=== PATIENT | female | born 1980 | race Caucasian/White ===

== ENCOUNTER → 2021-11-10 08:50 | Outpatient (BNVA) | payer OTHER, SELFPAY | PROVIDERS: Visit Provider Nurse Practitioner Family ==

== ENCOUNTER → 2022-01-12 09:00 | Outpatient (BNVA) | payer OTHER, SELFPAY | PROVIDERS: Visit Provider Nurse Practitioner Family ==

== ENCOUNTER 2023-11-22 19:10 | Emergency (ER) | payer MEDICAID, SELFPAY ==
--- NOTE | ~2023-11-22 | XR_ITS ---
EXAMINATION: XR HIP, LEFT CLINICAL INFORMATION: Right groin and hip pain status post fall COMPARISON: None available. TECHNIQUE: Single view the pelvis 2 views of the left hip FINDINGS: No acute visible fracture or dislocation. Bilateral hips demonstrate coxa vara angulation. Degenerative arthropathy of the lumbosacral spine. Joint spaces and alignment are maintained. Soft tissues are unremarkable. Visualized bowel gas is unremarkable. XR/XR hip LT w [id number] IMPRESSION: 1. No acute visible fracture or dislocation. 2. Bilateral hips demonstrate coxa vara angulation. 3. Degenerative arthropathy of the lumbosacral spine.
--- NOTE | 2023-11-22 19:15 | ED.GENADULT ---
HPI - General Adult General Chief complaint: Fall Stated complaint: hip inj, fell while running Time Seen by Provider: 11/22/23 21:01 Source: patient and family Mode of arrival: ambulatory Limitations: no limitations History of Present Illness HPI narrative: Patient is Syrian speaking only. Criminal Justice Social Worker was offered. However, patient requested to have her daughter interpret for us Patient comes to the emergency room complaining of left-sided hip pain and inguinal pain. Patient states that earlier today she was playing with children, patient was running trying to catch them, patient slipped her legs split open laterally. Patient states that since then she has had hip pain. Patient states that she did not hurt her head or lost consciousness, does not take any blood thinners. Related Data Home Medications Medication Instructions Recorded Confirmed azathioprine 50 mg tablet 50 mg PO DAILY 11/03/21 calcium carbonate 334 mg-magnesium 1 tab PO DAILY 11/03/21 01/31/22 oxide 134 mg-zinc sulf 5 mg tablet Previous Rx's Medication Instructions Recorded methylprednisolone 4 mg tablet 4 mg PO DAILY 30 days #30 tabs 11/10/21 cyclobenzaprine 10 mg tablet 10 mg PO TID PRN muscle spasm #7 11/22/23 tabs ketorolac 10 mg tablet 10 mg PO TID PRN pain #10 tabs 11/22/23 Allergies Allergy/AdvReac Type Severity Reaction Status Date / Time No Known Allergies Allergy Verified 11/22/23 19:15 Review of Systems Review of Systems: Constitutional : No Weight loss, No Fever, No Chills, No Night Sweats, No Fatigue, No Malaise ENT/Mouth : No Hearing loss, No Ear Pain, No Nasal Congestion, No Sinus Pain, No Hoarseness, No sore throat, No Rhinorrhea, No Swallowing Difficulty Eyes: No Eye Pain, No Swelling, No Redness, No Foreign Body, No Discharge, No Vision Changes Cardiovascular : No Chest Pain, No SOB, No Dyspnea on Exertion, No Orthopnea, No Edema, No Palpitations Respiratory : No Cough, No Sputum, No Wheezing, No Smoke Exposure, No Dyspnea Gastrointestinal : No Nausea, No Vomiting, No Diarrhea, No Constipation, No abdominal Pain, No Hematochezia, No Melena Genitourinary : no irregular bleeding, No Dysuria, No Urinary Frequency, No Hematuria, No Urinary Incontinence, No Urgency, No Flank Pain, No Urinary Flow Changes, No Hesitancy Musculoskeletal : Complaining of left-sided hip pain and left inguinal pain, No joint pain, No Myalgias, No Joint Swelling Skin : No Skin Lesions, No rash Neuro : No Weakness, No Numbness, No Paresthesias, No Loss of Consciousness, No Dizziness, No Headache Psych : No Anxiety/Panic, No Depression, No SI/HI/AH/VH, No Social Issues, Heme/Lymph: No Bruising, No Bleeding,No Lymphadenopathy Endocrine : No Polyuria, No Polydipsia, No Temperature Intolerance PMFSH Past Medical History Onset Date is defined in the Problem List Problems that require an onset date and time if occurred within 24 hrs of arrival to the ED Aortic Dissection and Rupture; Neurologic impairment; Cardiopulmonary Arrest; Endotracheal Intubation; Insertion or Replacement of Mechanical Circulatory Assist Device Surgical History (Updated 11/03/21 @ 15:00 by ALEKSANDRA Calderon) H/O tubal ligation H/O section Family History Family History Father HTN (hypertension) Mother HTN (hypertension) Social History Social History Alcohol intake: never Patient Tobacco Use Status: Never used Tobacco Physical Exam ED Vital Signs: Vital Signs - 24 hr 11/22/23 19:21 11/22/23 21:03 Temperature 98.1 F Pulse Rate 75 67 Respiratory Rate 16 Blood Pressure 142/86 H 132/76 Pulse Oximetry 98 99 Oxygen Delivery Method Room Air Room Air BMI result Body Mass Index 26.9 Const Other: Appearance: Alert. Oriented X3. No acute distress. Eyes: Pupils equal, round and reactive to light. ENT: Pharynx normal. Neck: Normal inspection. Neck supple. No lymph nodes noted. No crepitus CVS: Normal heart rate and rhythm. Pulses normal. Normal S1 and S2 Respiratory: No respiratory distress. Breath sounds normal. No Wheezing. No rales Abdomen: Soft and nontender. No rigidity. No distention. Skin: Skin warm and dry. Normal skin color. Normal skin turgor. Extremities: No lower extremity edema. No Lacerations. No Rash. Patient is able to flex extend and rotate the hips with normal range of motion, but hurts doing so on the left. Neuro: Oriented X 3. No motor deficit. No sensory deficit. Moving all extremities. No slurred speech. CN 2 through 12 grossly intact Psych: calm, cooperative, normal affect Course Course Course Narrative: RME:?42 yo female here w/ left groin/ hip pain after s/p fall from standing height. states she was running after her children when she slipped, causing her to do the splits. no head strike or LOC. not on AC. reports immediate pain to the right groin/ hip area. pain w/ bearing weight. able to ambulate with assistance. no back pain. no bowel/bladder incontinence or retention. with daughter who will interpret. exam limited in triage. pt in wheelchair. 2+ dp/pt pulses. sensation intact. decreased strength of LLE secondary to pain. imaging ordered Full HPI, ROS and PE to be performed by the primary ED provider. Medical Decision Making Medical Decision Making [facility] Narrative: -my interpretation of x-ray of the left hip: No fracture, normal alignment -patient was given choice of treatment including p.o. versus IM. Patient decided to do IM Toradol and oral muscle relaxants. -discussed with the patient that if she has any trouble walking, we can offer crutches. However, with the icy roads, this may be a hazard. Patient opted to not use crutches, states that she can walk slowly. Differential Diagnosis Differential Diagnoses: The differential diagnosis associated with the presentation includes (Inguinal ligament injury, hip fracture, dislocation, contusion) Independent Interpretation I performed an independent interpretation of an: Plain X-Ray Radiology Impression Discussion of test interpretation with radiology: I have reviewed the radiologist's reading. Radiologist Impression: FINDINGS: No acute visible fracture or dislocation. Bilateral hips demonstrate coxa vara angulation. Degenerative arthropathy of the lumbosacral spine. Joint spaces and alignment are maintained. Soft tissues are unremarkable. Visualized bowel gas is unremarkable. XR/XR hip LT w PEL1V IMPRESSION: 1. No acute visible fracture or dislocation. 2. Bilateral hips demonstrate coxa vara angulation. 3. Degenerative arthropathy of the lumbosacral spine. Discharge Plan Discharge Clinical Impression: Acute hip pain Patient Disposition: Home, Self-Care Instructions: Arthralgia (ED), Hip Pain (ED) Additional Instructions: Please follow-up with your primary care physician tomorrow. If you have any worsening or new symptoms, please return to the emergency room or call 911 Prescriptions: New ketorolac 10 mg tablet 10 mg PO TID PRN (Reason: pain) Qty: 10 0RF Rx Instructions: Do not use this medication with Aleve, ibuprofen, naproxen or any other NSAIDs. Tylenol is okay cyclobenzaprine 10 mg tablet 10 mg PO TID PRN (Reason: muscle spasm) Qty: 7 0RF No Action azathioprine 50 mg tablet 50 mg PO DAILY calcium carb-mag ox-zinc sulf 334-134-5 mg tablet 1 tab PO DAILY Rx Instructions: administer with a meal methylprednisolone 4 mg tablet 4 mg PO DAILY 30 Days Qty: 30 2RF
[2023-11-22 19:21] VITALS: BP 142/86; PULSE 75; RESP 16; TEMP 36.7; O2SAT 98; BMI 26.9
[2023-11-22 21:03] VITALS: BP 132/76; PULSE 67; O2SAT 99
[2023-11-22] MEDS: Cyclobenzaprine HCl 10 MG TABLET PO (21:27)
[2023-11-22] MEDS: Ketorolac Tromethamine 60 MG/2 ML VIAL IM (21:27)
--- OUTSIDE RECORDS SUMMARY | 2023-11-22 21:28 | XMS_ITS | Continuity of Care Document ---
Author Name Unknown Organization [facility] Address [address] [place] [id number]- Care Team Providers Care Chief Inspector Name Role Phone Yesica Lucio Primary Care Physician [phone] Encounter [facility] [place] [facility] [place] Date(s): 01/17/23 - 01/17/[address] [address]- Discharge Disposition: A-D/C Home Attending Physician: Tobias Matthews MD Admitting Physician: Tobias Matthews MD Referring Physician: Tobias Matthews MD Allergies, Adverse Reactions, Alerts No Known Allergies Medications Colace sodium 100 mg oral capsule 100 mg, 1, capsule, By Mouth, 2 times a day, PRN, # 60 capsule, Refills 0, Tot. Refills 0, Maintenance, for constipation, 01/17/23 12:52:00 EDT, Route to Pharmacy Electronically, [id number], Partial fill upon patient request if the pr... Start Date: 01/17/23 Status: Ordered Compression Stockings See Instructions, # 2 each, Refills 1, Tot. Refills 1, Maintenance, surgical, thigh high length 20-30 mm Hg Dx: Venous Insuff., 12/23/22 9:55:00 EST, Supply Start Date: 12/23/22 Status: Ordered diazepam 5 mg oral tablet 5 mg, 1, tablet, By Mouth, 3 times a day, # 40 tablet, Refills 0, Tot. Refills 0, Maintenance, 01/17/23 12:52:00 EDT, Route to Pharmacy Electronically, [id number], Partial fill upon patient request if the prescription is for a schedul... Start Date: 01/17/23 Status: Ordered Ferrous Sulfate EC Refills 0, Maintenance, 01/13/23 16:47:00 EST, Partial fill upon patient request if the prescription is for a schedule II opioid drug. Start Date: 01/13/23 Status: Ordered oxyCODONE 5 mg oral tablet 5 mg, 1, tablet, By Mouth, Every 6 hours, # 28 tablet, Refills 0, Tot. Refills 0, Maintenance, 01/17/23 12:52:00 EDT, Route to Pharmacy Electronically, [facility] #[id number], Partial fill upon patient request if the prescription is for a schedul... Start Date: 01/17/23 Status: Ordered Oxycodone 5mg Oral Tablet (PACU ONLY) 5 mg, Tablet, By Mouth, Once, in PACU ONLY, PRN for Pain , Moderate, Routine, 01/17/23 11:51:00 EDT Start Date: 01/17/23 Stop Date: 01/17/23 Status: Completed Vital Signs Most recent to oldest [Reference Range]: 1 2 3 Height 161 cm (01/17/23 10:20 AM) 161 cm (01/13/23 4:51 PM) Weight 67.7 kg (01/17/23 10:20 AM) 68.9 kg (01/13/23 4:51 PM) Oxygen Saturation [94-100 %] 96 % (01/17/23 1:15 PM) 95 % (01/17/23 1:00 PM) 97 % (01/17/23 12:45 PM) Pulse Rate [55-90 bpm] 67 bpm (01/17/23 10:20 AM) Body Mass Index [18.5-24.99 kg/m2] 26.12 kg/m2 *H* (01/17/23 10:20 AM) 26.58 kg/m2 *H* (01/13/23 4:51 PM) Blood Pressure [90-138/55-84 mm Hg] 131/88mm Hg (01/17/23 1:15 PM) 136/89mm Hg (01/17/23 1:00 PM) 157/97mm Hg *H* (01/17/23 12:45 PM) Respiratory Rate [16-30 br/min] 16 br/min (01/17/23 1:22 PM) 15 br/min *L* (01/17/23 1:15 PM) 15 br/min *L* (01/17/23 1:00 PM) Temperature [96.8-100.4 DegF] 97 DegF (01/17/23 1:15 PM) 97.0 DegF (01/17/23 12:15 PM) 98.2 DegF (01/17/23 10:20 AM) Liters per Minute 6 L/min (01/17/23 12:15 PM) Mode of Delivery (Oxygen) Room air (01/17/23 1:15 PM) Room air (01/17/23 1:00 PM) Room air (01/17/23 12:45 PM) Temperature Route Temporal (01/17/23 1:15 PM) Temporal (01/17/23 12:15 PM) Femoral (01/17/23 10:20 AM) Dry Weight 68.9 kg (01/13/23 4:51 PM) Weight Obtained Via Standing scale (01/17/23 10:20 AM) Dry Weight Obtained Via Patient/family s tated (01/13/23 4:51 PM) Social History Social History Type Response Smoking Status Never (less than 100 in lifetime) entered on: 10/09/20 Sex Female Note * Layla Dubose RN: PERFORM Event Display: Discharge/Transfer Note Hospital Authored Date: [id number] Nursing Discharge Note Entered On: 01/17/2023 13:42 EDT Performed On: 01/17/2023 13:42 EDT by Layla Dubose RN Nursing Discharge Note 2 Discharge Time : 01/17/2023 13:42 EDT Discharge Level of Care at Discharge : Home/Prison/Foster Care Patient Left Unit Via : Wheelchair Patient Accompanied Off Unit with : Responsible adult DC Instructions Provided & Signed by Pt : Yes Patient Understands D/C Instructions : Yes Patient Instructions Discharge Signed : Yes Did Pt have Specialty Bed or Wound Vac : No Layla Dubose RN - 01/17/2023 13:42 EDT * Tamia Harvey RN: PERFORM Event Display: Patient Education/Instruction Authored Date: [id number] Inpatient Adult Discharge Instructions [address] [address] Name: KATERINA REYNOLDS : 1980 Visit: 01/17/2023 09:08:00 Current Date: 01/17/2023 13:02 Account: [id number] Inpatient Adult Discharge Instructions We would like to thank you for allowing us to assist you with your healthcare needs. The following includes patient education materials and information regarding your injury/illness. Our entire staffstrives to provide an excellent experience for our patients and their families. PLEASE ENSURE YOU FOLLOW-UP PER THE INSTRUCTIONS BELOW! ?? YOUR OPINION IS IMPORTANT TO US! Please complete the survey you may receive by mail or email. Your feedback will be used to make improvements to the healthcare experiences of our patients and their families. Surveys are administered by [employer] ?? If further treatment with your primary care physician or another doctor is recommended, it is important for you to keep the appointment. Call your primary care physician or return to the Emergency Department immediately if your condition worsens, fails to improve, or new symptoms develop. If you need to find a doctor, you can call [facility] [employer] for a referral at [phone] or toll free at [phone] or log in to [email or web address] ?? You can view and manage your care through the patient portal or by using a health care paulette of your choosing. [employer] is a website that allows you to securely view your medical information including your hospital discharge summary, office visit summaries, medications and follow-up visits. You can also request appointments, renew medications, and request access to your medical information using a health care paulette of your choosing, or just ask a question. You can enroll at [email or web address] or register during your next office visit. You have been discharged from [facility], Patient Care Unit: [facility]. If you have any questions regarding these instructions after you leave, please call us and we will be happy to assist you. [facility] Your Care Team Attending Physician Tobias Matthews MD Discharging Providers Sammy BUTLER, Angel Modi Reason for Admission HEMORRHOIDS CS DS Tests Performed Below is a partial list of the tests performed during your hospitalization. You may have had other tests and procedures not included in this list. Please discuss all test results with your provider. Primary Care Provider Yesica Lucio Advance Directive Health Care Proxy on File No Discharge Vitals Temperature: 97 DegF Height: 161 cm Pulse Rate: 67 bpm Weight: 67.7 kg Respiratory Rate:??12 br/min??Low Body Mass Index:??26.12 kg/m2??High Respiratory Rate: 16 br/min Body surface area: 1.74 Systolic Blood Pressure:??157 mm Hg??High ?? Diastolic Blood Pressure:??97 mm Hg??High ?? Oxygen Saturation: 97 % ?? Studies Pending All tests and labs ordered during this hospital stay have been completed unless listed below. Please discuss all pending results with your provider listed above in these instructions. ?? No incomplete studies found What to do next Instructions From Your Doctor Discharge Orders Instructions from your Care Team Please see discharge instructions provided in white folder. Scheduled Follow-Up Appointments Monday 10:30 AM EDT ?? With: Byron BUTLER, Tobias Hahn Where: [address] [place] [address]- You Need to Schedule the Following Appointments Follow Up with??Tobias Matthews When?? Where: [address] [place] [address] [address] [place] [address]- [facility] (1) Follow Up with??Yesica Borden When??In 0 days Discharge Medications KATERINA REYNOLDS :1980 Visit Date:01/17/2023 Medications: Please continue your medications until treatment is completed or stopped by your provider. Medications not listed below should be discontinued. Discuss any questions related to medications with your provider. What How Much When Instructions Next Dose Unchanged Diazepam (diazepam 5 mg oral tablet) 1 tab(s) Oral 3 times a day Unchanged Docusate (Colace sodium 100 mg oral capsule) 1 capsule Oral Twice a day as needed for for constipation Unchanged Durable Medical Equipment (Compression Stockings) See instructions surgical, thigh high length 20-30 mm Hg ?? Dx: Venous Insuff. ?? Unchanged Ferrous Sulfate (Ferrous Sulfate EC) Unchanged Oxycodone (oxyCODONE 5 mg oral tablet) 1 tab(s) Oral Every 6 hours Tylenol- next dose 7pm if needed. Ibuprofen- may take Test Results Below is a partial list of the most recent Laboratory test results done prior to this discharge. You may have had other tests and procedures not included in this list. Please discuss all test resultswith your provider. Allergies (NKA means No Known Allergies) NKA Problems No qualifying data available Education Materials Below is the list of Educational Leaflet Providered with your Discharge Instructions. Surgery Medical Daystay Surgical Overnight Discharge Instructions?? Valuables and Belongings I fully understand and agree that [facility] accepts no responsibility for all my personal property including clothing, toilet articles, radios, jewelry, dentures, hearing aids, rings, money, or any other property that is in my possession or is brought to me after admission. I understand certain valuables may be placed in a hospital safe for a short period of time. I understand that the hospital is not liable for loss or damage due to accident, fire, or other natural occurrence while said property is in the safe. I accept full responsibility for any personal property that I keep with me, and will not hold the hospital responsible in case of loss or disappearance. I acknowledge that i have been encouraged to send valuables and belongings home. ?? Date for Pt to Sign Valuables/Belongings: 01/17/23 10:20:00 ?? Valuables & Belongings ?? Clothes Electronic devices Jewelry Monetary Items Personal devices Miscellaneous Medications (Valuables) Valuables at Bedside Jacket, Pants, Shirt, Shoes, Undergarments ? Valuables Sent Home ? Valuables Sent to Security ? Other Discharge Information ? Pulmonary Rehab Status?? Pulmonary Rehab Discharge Status?? Respiratory Rate:??12 br/min??Low Respiratory Rate: 16 br/min ? Common Emergency Awareness Tips IS IT A STROKE? Act FAST and Check for these signs: FACE Does the face look uneven? ARM Does one arm drift down? SPEECH Does their speech sound strange? TIME Call at any sign of stroke ?? Heart Attack Signs Chest discomfort: Most heart attacks involve discomfort in the center of the chest and lasts more than a few minutes, or goes away and comes back. It can feel like uncomfortable pressure, squeezing, fullness or pain. Discomfort in upper body: Symptoms can include pain or discomfort in one or both arms, back, neck, jaw or stomach. Shortness of breath: With or without discomfort. Other signs: Breaking out in a cold sweat, nausea, or lightheaded. Remember, MINUTES DO MATTER. If you experience any of these heart attack warning signs, call to get immediate medical attention! ?? Smoking can increase your chances of developing chronic health problems and can cause harmful effects to other family members in your house. If you smoke, you are strongly encouraged to quit. Please call [facility] [employer] [facility] at [phone] or [phone] 2.0 (0633) or log in to [email or web address] for referrals to smoking cessation programs. ?? The National Suicide Prevention Hotline is available 29/05 if you or someone you know needs to find a reason to keep living. By calling 2-217-861-[employer] (6679) you'll be connected to a skilled, trained counselor at a crisis center in your area. INPATIENT DISCHARGE INSTRUCTIONS SIGNATURE PAGE KATERINA REYNOLDS Location:[facility] Registration Date and Time:01/17/2023 09:08 EDT Primary Care Physician: Yesica Lucio, I KATERINA REYNOLDS, have received the above patient education materials/instructions and have verbalized understanding. If ambulance or transport services are being used I further acknowledge being given a choice of service. ?? If you need to contact me, please call me at this number: . Patient/Rig Welder Name: Katerina Reynolds Patient/Rig Welder Signature: Relationship to Patient: self Witness Name/Signature: Date: 3.14.23 * Tamia Harvey RN: PERFORM, SIGN, VERIFY Event Display: Patient Education Handout Authored Date: [id number] * Tamia Harvey RN: PERFORM Event Display: Patient Education Leaflets Authored Date: [id number] Surgery Medical Daystay Surgical Overnight Discharge Instructions ?? 295 Medical Daystay/Surgical Overnight Discharge Instructions ? Since your coordination and judgment may be altered by medication and/or anesthesia, a responsible adult must drive you home from the hospital. ? If you have received medication for pain or sedation while under our care, you should not drive, operate machinery, drink alcohol, or sign any legal documents for 24 hours.?? You should have someone with you at home tonight. ? Remain at home the day of discharge.?? You may be up and about unless otherwise instructed by your physician. ? You may resume your daily prescription medication schedule.?? Any depressant medication should be avoided for 24 hours unless otherwise instructed by your surgeon or anesthesiologist. ? Call your physician for a follow-up appointment.? If you experience unusual or severe pain not relied by your pain medication, excessive bleedingor drainage, persistent nausea and vomiting, excessive swelling or redness, foul odor from incisionsite or fever over 100.6F, you need to call your physician. ? A follow-up phone call by a nurse will be made the day after your procedure.?? If you have stayed with us over night, you will not be receiving a follow-up phone call. ? Nausea and vomiting are a common side effect of prescription pain medication.?? We recommend that pills are not taken on an empty stomach.?? While taking any prescription pain medication you should not drive or drink alcohol. ? Patient Care team information Care Team Personnel Name: Yesica Lucio Position: S Associate Professional Member Role: PCP Address: Address: [address] Care Team Related Persons Name: NAVID FORRESTER
--- OUTSIDE RECORDS SUMMARY | 2023-11-22 21:28 | XMS_ITS | Continuity of Care Document ---
Author Name Unknown Organization [facility] Address [address] [place], [place] [address] ve [address] [place] [address]- Care Team Providers Care Maintainer Central Office Name Role Phone Yesica Lucio Primary Care Physician Encounter [facility] [place] Date(s): 01/21/23 - 02/20/[address] [place] [address]- Allergies, Adverse Reactions, Alerts No Known Allergies Medications Colace sodium 100 mg oral capsule 100 mg, 1, capsule, By Mouth, 2 times a day, PRN, # 60 capsule, Refills 0, Tot. Refills 0, Maintenance, for constipation, 01/17/23 12:52:00 EDT, Route to Pharmacy Electronically, [facility][id number], Partial fill upon patient request if the [...] 01/17/23 12:52:00 EDT, Route to Pharmacy Electronically, [facility] #[id number], Partial fill upon patient request if the [...] 01/17/23 12:52:00 EDT, Route to Pharmacy Electronically, [facility] #[id number], Partial fill upon patient request if the prescription is for a schedul... Start Date: 01/17/23 Status: Ordered Social History Social History Type Response Smoking Status Never (less than 100 in lifetime) entered on: 10/09/20 Sex Female Patient Care team information Care Team Personnel Name: Yesica Lucio Position: S Associate Professional Member Role: PCP Address: Address: [address] [place] [address]- Care Team Related Persons Name: SARA MEDRANO
--- OUTSIDE RECORDS SUMMARY | 2023-11-22 21:28 | XMS_ITS | Continuity of Care Document ---
Author Name Unknown Organization [facility] Address [address] [place] [address] [address] [place] [address]- Care Team Providers Care Soil Conservation Technician Name Role Phone Yesica Lucio Primary Care Physician [place] [facility] [place] - 08/24/[address] [place] [address]- Attending Physician: Tobias Matthews MD Referring Physician: Yesica Lucio Allergies, Adverse Reactions, Alerts No Known Allergies Medications azaTHIOprine 50 mg oral tablet 50 mg, 1, tablet, By Mouth, 3 times a day, Refills 0, Maintenance, 10/09/20 16:52:00 EST, Partial fill upon patient request if the prescription is for a schedule II opioid drug. Start Date: 10/09/20 Status: Ordered methylPREDNISolone 8 mg oral tablet = 8 mg, By Mouth, Daily, 0 Refills, Maintenance, 10/09/20 16:50:00 EST, Partial fill upon patient request if the prescription is for a schedule II opioid drug. Start Date: 10/09/20 Status: Ordered Vital Signs Most recent to oldest [Reference Range]: 1 Height 161 cm (08/17/22 11:07 AM) Weight 68.2 kg (08/17/22 11:07 AM) Pulse Rate [55-90 bpm] 83 bpm (08/17/22 11:07 AM) Body Mass Index [18.5-24.99 kg/m2] 26.31 kg/m2 *H* (08/17/22 11:07 AM) Blood Pressure [90-138/55-84 mm Hg] 142/ 80mm Hg *H* (08/17/22 11:07 AM) Temperature [96.8-100.4 DegF] 98.2 DegF (08/17/22 11:07 AM) Temperature Route Temporal (08/17/22 11:07 AM) Social History Social History Type Response Smoking Status Never (less than 100 in lifetime) entered on: 10/09/20 Sex Female Patient Care team information Personnel Name: Yesica Lucio Address: Address: [address] [place] [address]
--- OUTSIDE RECORDS SUMMARY | 2023-11-22 21:28 | XMS_ITS | Continuity of Care Document ---
Author Name Unknown Organization [facility] Address [address] [place] [address] [address] [place] [address]- Care Team Providers Care Manager Of Creative Services Name Role Phone Yesica Lucio Primary Care Physician Encounter [place] Date(s): 07/14/23 - 08/13/[address] [place] [address]- Allergies, Adverse Reactions, Alerts No Known Allergies Immunizations Given and Recorded Vaccine Date Status Refusal Reason tetanus/diphtheria/pertussis, acel(Tdap) 05/05/23 Given Medications Colace sodium 100 mg oral capsule 100 mg, 1, capsule, By Mouth, 2 times a day, PRN, # 60 capsule, Refills 0, Tot. Refills 0, Maintenance, for constipation, 01/17/23 12:52:00 EDT, Route to Pharmacy Electronically, [facility][id number], Partial fill upon patient request if the [...] 01/17/23 12:52:00 EDT, Route to Pharmacy Electronically, [facility] #[id number], Partial fill upon patient request if the [...] 01/17/23 12:52:00 EDT, Route to Pharmacy Electronically, [facility][id number], Partial fill upon patient request if the prescription is for a schedul... Start Date: 01/17/23 Status: Ordered Social History Social History Type Response Smoking Status Never (less than 100 in lifetime) entered on: 10/09/20 Sex Female Patient Care team information Care Team Personnel Name: Yesica Lucio Position: S Associate Professional Member Role: PCP Address: Address: [address] [place] [address] Care Team Related Persons Name: ARYA QUINONEZ Name: HANNAH REYNOLDS Name: SARA MEDRANO Address: [facility]
--- OUTSIDE RECORDS SUMMARY | 2023-11-22 21:28 | XMS_ITS | Continuity of Care Document ---
Author Name Unknown Organization [facility] Address [address] [place] [address]i ve [address] [place] [address]- Care Team Providers Care Shot Core Drill Operator Name Role Phone Yesica Lucio Primary Care Physician [phone] Encounter [facility] [place] Date(s): 01/31/23 - 03/02/[address] [place] [address]- Allergies, Adverse Reactions, Alerts No Known Allergies Medications Colace sodium 100 mg oral capsule 100 mg, 1, capsule, By Mouth, 2 times a day, PRN, # 60 capsule, Refills 0, Tot. Refills 0, Maintenance, for constipation, 01/17/23 12:52:00 EDT, Route to Pharmacy Electronically, [facility][id number], Partial fill upon patient request if the [...] 01/17/23 12:52:00 EDT, Route to Pharmacy Electronically, [facility] #[id number], Partial fill upon patient request if the [...] 01/17/23 12:52:00 EDT, Route to Pharmacy Electronically, [facility] #[id number], Partial fill upon patient request if the prescription is for a schedul... Start Date: 01/17/23 Status: Ordered Social History Social History Type Response Smoking Status Never (less than 100 in lifetime) entered on: 10/09/20 Sex Female Patient Care team information Care Team Personnel Name: Yesica Lucio Position: S Associate Professional Member Role: PCP Address: Address: [address] [place] [address]- Care Team Related Persons Name: SARA MEDRANO
--- OUTSIDE RECORDS SUMMARY | 2023-11-22 21:28 | XMS_ITS | Continuity of Care Document ---
Author Name Unknown Organization [facility] Address [address] [place] [address]- Care Team Providers Care Telephone Exchange Operator Name Role Phone Yesica Lucio Primary Care Physician [phone] [place] [facility] [place] 12/19/22 - 01/18/23 [facility] [address] [place], [place] [address] Attending Physician: Jocelynn Mckeon Admitting Physician: Jocelynn Mckeon Referring Physician: trJocelynn Allergies, Adverse Reactions, Alerts No Known Allergies Medications Colace sodium 100 mg oral capsule 100 mg, 1, capsule, By Mouth, 2 times a day, PRN, # 60 capsule, Refills 0, Tot. Refills 0, Maintenance, for constipation, 01/17/23 12:52:00 EDT, Route to Pharmacy Electronically, [facility][id number], Partial fill upon patient request if the [...] 01/17/23 12:52:00 EDT, Route to Pharmacy Electronically, [facility] #[id number], Partial fill upon patient request if the [...] 01/17/23 12:52:00 EDT, Route to Pharmacy Electronically, [facility] #[id number], Partial fill upon patient request if the prescription is for a schedul... Start Date: 01/17/23 Status: Ordered Social History Social History Type Response Smoking Status Never (less than 100 in lifetime) entered on: 10/09/20 Sex Female Patient Care team information Care Team Personnel Name: Yesica Lucio Position: S Associate Professional Member Role: PCP Address: Address: [address] [place] [address] Care Team Related Persons Name: NAVID FORRESTER
--- OUTSIDE RECORDS SUMMARY | 2023-11-22 21:28 | XMS_ITS | Continuity of Care Document ---
Author Name Unknown Organization [facility] Address [address] [place] [address]- Care Team Providers Care Slubber Machine Operator Name Role Phone Yesica Lucio Primary Care Physician [place] [facility] [place] - 08/28/[address] [address] Discharge Disposition: A-D/C Home Attending Physician: Tobias Matthews MD Admitting Physician: Tobias Matthews MD Referring Physician: Tobias Matthwes MD Allergies, Adverse Reactions, Alerts No Known Allergies Immunizations Given and Recorded Vaccine Date Status Refusal Reason tetanus/diphtheria/pertussis, acel(Tdap) 05/05/23 Given Medications famotidine 20 mg oral tablet 20 mg, 1, tablet, By Mouth, Daily, # 30 tablet, Refills 0, Maintenance, 08/28/23 9:25:00 EDT, Partial fill upon patient request if the prescription is for a schedule II opioid drug. Start Date: 08/28/23 Status: Ordered PredniSONE By Mouth, Daily, 0 Refills, Maintenance, 08/28/23 9:25:00 EDT, Partial fill upon patient request ifthe prescription is for a schedule II opioid drug. Start Date: 08/28/23 Status: Ordered Vital Signs Most recent to oldest [Reference Range]: 1 2 3 Height 160 cm (08/28/23 9:29 AM) Weight 68 kg (08/28/23 9:29 AM) Oxygen Saturation [94-100 %] 100 % (08/28/23 11:14 AM) 100 % (08/28/23 11:07 AM) 100 % (08/28/23 9:29 AM) Pulse Rate [55-90 bpm] 72 bpm (08/28/23 9:29 AM) Body Mass Index [18.5-24.99 kg/m2] 26.56 kg/m2 *H* (08/28/23 9:29 AM) Blood Pressure [90-138/55-84 mm Hg] 120/74mm Hg (08/28/23 11:14 AM) 123/74mm Hg (08/28/23 11:07 AM) 131/84mm Hg (08/28/23 9:29 AM) Respiratory Rate [16-30 br/min] 16 br/min (08/28/23 11:07 AM) 16 br/min (08/28/23 9:29 AM) Temperature [96.8-100.4 DegF] 98.1 DegF (08/28/23 9:29 AM) Mode of Delivery (Oxygen) Room air (08/28/23 11:14 AM) Room air (08/28/23 11:07 AM) Room air (08/28/23 9:29 AM) Temperature Route Temporal (08/28/23 9:29 AM) Weight Obtained Via Patient/family state d (08/28/23 9:29 AM) Social History Social History Type Response Smoking Status Never (less than 100 in lifetime) entered on: 10/09/20 Sex Female Note * Ana Maria Hicks RN: PERFORM Event Display: Discharge/Transfer Note Hospital Authored Date: [id number] Nursing Discharge Note Entered On: 08/28/2023 11:04 EDT Performed On: 08/28/2023 11:04 EDT by Ana Maria Hicks RN Nursing Discharge Note 2 Discharge Time : 08/28/2023 11:43 EDT Ana Maria Hicks RN - 08/28/2023 11:43 EDT Discharge Level of Care at Discharge : Home/[facility] Patient Left Unit Via : Wheelchair Patient Accompanied Off Unit with : Responsible adult DC Instructions Provided & Signed by Pt : Yes Patient Understands D/C Instructions : Yes Patient Instructions Discharge Signed : Yes Did Pt have Specialty Bed or Wound Vac : No Ana Maria Hicks RN - 08/28/2023 11:04 EDT * Ana Maria Hicks RN: PERFORM Event Display: Patient Education/Instruction Authored Date: [id number] Surgery Adult Discharge Instructions [address] [address] Name: MARGAUX REYNOLDS : 1980?? Visit: 08/28/2023 08:45?? Current Date: 08/28/2023 11:04 ?? Account: [id number]?? Surgery Discharge Instructions We would like to thank [...] and their families. Surveys are administered by [employer] ?? If further treatment with your primary care physician or another doctor is recommended, it is important for you to keep the appointment. Call your primary care physician or return to the Emergency Department immediately if your condition worsens, fails to improve, or new symptoms develop. If you need to find a doctor, you can call [facility] Link for a referral at [phone] or toll free at [phone]) or log in to [email or web address].. ?? [facility], in keeping with [facility] guidance, no longer requires face masks for staff, patientsor visitors in most situations. Similiar to time spent indoors at other locations, there is the chance that you were exposed to repiratory viruses during your time with us (such as flu or COVID-19). If you develop symptoms concerning for a viral respiratory infection, please seek testing (and treatment if indicated) from your medical provider or home test kit. ?? You can view and manage your care through the patient portal or by using a health care paulette of your choosing. [employer] is a website that allows you to securely view your medical information including your hospital discharge summary, office visit summaries, medications and follow-up visits. You can also request appointments, renew medications, and request access to your medical information using a health care paulette of your choosing, or just ask a question. You are entitled to know the individuals who participated in your treatment. This information is available within your medical record and will be provided upon your request. You can enroll at [email or web address] or register d uring your next office visit. You have been discharged from [facility], Patient Care Unit: ENDO??. If you have any questions regarding these instructions after you leave, please call us and we will be happy to assist you. [facility] Your Care Team Attending Physician Tobias Matthews MD?? Consulting Providers Arcadio DYSON, Cornell Johns?? Discharging Providers Tobias Matthews MD Reason for Admission HEMORRHOIDS Primary Care Provider Yesica Lucio? Advance Directive Health Care Proxy on File No Patient refuses to discuss What to do next Instructions From Your Doctor ?? Orders?? Daystay Protocol, ??08/28/23 9:01:00 EDT?? Scheduled Follow-Up Appointments Monday 2:00 PM EDT ?? With: Tobias Matthews MD Where: [address] [place] [address]- Status: Pending You Need to Schedule the Following Appointments Follow Up with??As Needed Discharge Medications MARGAUX REYNOLDS :1980 Visit Date:08/28/2023 Medications: Please continue your medications until treatment is completed or stopped by your provider. You may resume your daily prescription medications. Discuss any questions related to medications with your provider. What How Much When Instructions Next Dose Unchanged Famotidine (famotidine 20 mg oral tablet) 1 tab(s) Oral Daily Unchanged PredniSONE Oral Daily Allergies (NKA means No Known Allergies) NKA Education Materials Below is the list of Educational Leaflet Providered with your Discharge Instructions. Valuables and Belongings I fully understand and agree that [facility] accepts no responsibility for all my [...] ?? Date for Pt to Sign Valuables/Belongings: 08/28/23 09:29:00 ?? Valuables & Belongings ?? Clothes Electronic devices Jewelry Monetary Items Personal devices Miscellaneous Medications (Valuables) Valuables at Bedside Pants, Shirt, Shoes Cell phone ? Valuables Sent Home ? Valuables Sent to Security ? Other Discharge Information ? Case Management Discharge Plan?? Discharge Plan?? Discharge Level of Care at Discharge: Home/[facility] ? Common Emergency Awareness Tips IS IT [...] are strongly encouraged to quit. Please call [employer] [facility] at [phone] or 7-319-506[employer] ([phone]) or log in to [email or web address] for referrals to smoking cessation programs. ?? The National Suicide Prevention Hotline is available 29/05 if you or someone you know needs to find a reason to keep living. By calling 2-618-616[facility] (9207) you'll be connected to a skilled, trained counselor at a crisis center in your area. SURGERY DISCHARGE INSTRUCTIONS SIGNATURE PAGE MARGAUX REYNOLDS Location:[facility] Registration Date and Time:08/28/2023 08:45 EDT Primary Care Physician: Yesica Lucio, Attending Physician: Tobias Matthews MD, I MARGAUX REYNOLDS, have received the above patient education materials/instructions and have verbalized understanding. If ambulance or transport services are being used I further acknowledge being given a choice of service. ?? If you need to contact me, please call me at this number: . Patient/Professor Of Literacy Name: Patient/Professor Of Literacy Signature: Relationship to Patient: Witness Name/Signature: Date: Patient Care team information Care Team Personnel Name: Yesica Lucio Position: S Associate Professional Member Role: PCP Address: Address: [address] [place] [address], [place] [address]- Care Team Related Persons Name: ARYA QUINONEZ Address: home [address] [place] [address] Name: HANNAH REYNOLDS Address: [address] [address] Name: SARA MEDRANO Address: [facility]
--- OUTSIDE RECORDS SUMMARY | 2023-11-22 21:28 | XMS_ITS | Continuity of Care Document ---
Author Name Unknown Organization [facility] Address [address] [place] [address] [address] [place] [address]- Care Team Providers Care Newsstand Vendor Name Role Phone Yesica Lucio Primary Care Physician [phone] [place]counter [facility] [place] Date(s): 07/05/23 - 09/29/[address] [place], [place] [address] Attending Physician: Tobias Matthews MD Allergies, Adverse Reactions, Alerts No Known Allergies Immunizations Given and Recorded Vaccine Date Status Refusal Reason tetanus/diphtheria/pertussis, acel(Tdap) 05/05/23 Given Medications barium sulfate 2% oral suspension See Instructions, 1bottle By Mouth 6 hours pre test 2nd bottle 90 min. pre test, # 2 each, 0 Refills, Maintenance, 09/05/23 8:53:00 EDT, [facility], Partial fill upon patient requestif the prescription is for a schedule II opioid diane... Start Date: 09/05/23 Status: Ordered famotidine 20 mg oral tablet 20 mg, [...] opioid drug. Start Date: 08/28/23 Status: Ordered Social History Social History Type Response Smoking Status Never (less than 100 in lifetime) entered on: 10/09/20 Sex Female Patient Care team information Care Team Personnel Name: Yesica Lucio Position: [facility] Associate Professional Member Role: PCP Address: Address: [address] [place] [address]- Care Team Related Persons Name: ARYA QUINONEZ Address: [address] [place] [address] Name: HANNAH REYNOLDS Address: [address] [place] [address] Name: SARA MEDRANO Address: [facility]
--- OUTSIDE RECORDS SUMMARY | 2023-11-22 21:28 | XMS_ITS | Continuity of Care Document ---
Author Name Unknown Organization [facility] Address [address] [place] [address] ve [address] [place] [address]- Care Team Providers Care Linen Manager Name Role Phone Yesica Lucio Primary Care Physician [place] [facility] [place] Date(s): 10/19/22 - 10/26/[address] [place] [address]- Attending Physician: Tobias Matthews MD Referring Physician: Yesica Lucio Allergies, Adverse Reactions, Alerts No Known Allergies Medications Compression Stockings See Instructions, # 2 each, Refills 2, Tot. Refills 2, Maintenance, surgical, calf length 20-30 mm Hg Dx: Varicose veins with pain, 10/03/22 16:22:00 EST, Compound Start Date: 10/03/22 Status: Ordered methylPREDNISolone 8 mg oral tablet = 8 mg, By Mouth, Daily, 0 Refills, Maintenance, 10/09/20 16:50:00 EST, Partial fill upon patient request if the prescription is for a schedule II opioid drug. Start Date: 10/09/20 Status: Ordered Vital Signs Most recent to oldest [Reference Range]: 1 Height 161 cm (10/19/22 3:50 PM) Weight 69.4 kg (10/19/22 3:50 PM) Pulse Rate [55-90 bpm] 73 bpm (10/19/22 3:50 PM) Body Mass Index [18.5-24.99 kg/m2] 26.77 kg/m2 *H* (10/19/22 3:50 PM) Blood Pressure [90-138/55-84 mm Hg] 162/ 77mm Hg *H* (10/19/22 3:50 PM) Temperature [96.8-100.4 DegF] 97.0 DegF (10/19/22 3:50 PM) Temperature Route Temporal (10/19/22 3:50 PM) Social History Social History Type Response Smoking Status Never (less than 100 in lifetime) entered on: 10/09/20 Sex Female Patient Care team information Care Team Personnel Name: Yesica Lucio Position: S Associate Professional Member Role: PCP Address: Address: [address] [place] [address] Care Team Related Persons Name: NAVID FORRESTER
--- OUTSIDE RECORDS SUMMARY | 2023-11-22 21:28 | XMS_ITS | Continuity of Care Document ---
Author Name Unknown Organization [facility] Address [address] [place] [address] [address] [place] [address]- Care Team Providers Care Nutritional Yeast Supervisor Name Role Phone Yesica Lucio Primary Care Physician [place] [facility] [place] - 09/29/[address] [place], [place] [address] Attending Physician: Jocelynn Mckeon Admitting Physician: AdmtrJocelynn Referring Physician: Admtr, Ar8 Allergies, Adverse Reactions, Alerts No Known Allergies Immunizations Given and Recorded Vaccine Date Status Refusal Reason tetanus/diphtheria/pertussis, acel(Tdap) 05/05/23 Given Medications barium sulfate 2% oral suspension See Instructions, 1bottle By Mouth 6 hours pre test 2nd bottle 90 min. pre test, # 2 each, 0 Refills, Maintenance, 09/05/23 8:53:00 EDT, [facility], Partial fill upon patient requestif [...] Care Team Personnel Name: Yesica Lucio Position: [facility] Associate Professional Member Role: PCP Address: Address: [address] [place] [address]- Care Team Related Persons Name: ARYA QUINONEZ Address: home [address] [place] [address] Name: HANNAH REYNOLDS Address: home [address] [place] [address] Name: SARA MEDRANO Address: [facility]
--- OUTSIDE RECORDS SUMMARY | 2023-11-22 21:28 | XMS_ITS | Continuity of Care Document ---
Author Name Unknown Organization [facility] Address [address] [place], [place] [address] ve [address] [place] [address]- Care Team Providers Care Novelty Maker Name Role Phone Yesica Lucio Primary Care Physician [phone] Encounter [facility] [place] Date(s): 11/11/22 - 12/11/[address] [place] [address]- [place] Allergies, Adverse Reactions, Alerts No Known Allergies [...] opioid drug. Start Date: 10/09/20 Status: Ordered Social History Social History Type Response Smoking Status Never (less than 100 in lifetime) entered on: 10/09/20 Sex Female Patient Care team information Care Team Personnel Name: Yesica Lucio Position: S Associate Professional Member Role: PCP Address: Address: [address] [place] [address]- Care Team Related Persons Name: NAVID FORRESTER
--- OUTSIDE RECORDS SUMMARY | 2023-11-22 21:28 | XMS_ITS | Continuity of Care Document ---
Author Name Unknown Organization [facility] Address [address] [place] [address] [address] [place] [address]- Care Team Providers Care Administrative Assistant Office Manager Name Role Phone Deena GARCIA, Candace Primary Care Physician [phone] Encounter [facility] [place] Date(s): 10/09/20 - 10/16/[address] [place] [address]- Encounter Diagnosis Myositis of thigh(Discharge Diagnosis) - 10/09/20 Attending Physician: Krishan Dubose MD Referring Physician: Cecelia Snell MD, Vikas Forrester Allergies, Adverse Reactions, Alerts Substance Reaction Severity Status NKA Active Medications azaTHIOprine 50 mg oral tablet 50 mg, 1, tablet, By Mouth, 3 times a day, Refills 0, Maintenance, 10/09/20 16:52:00 EST, Partial fill upon patient request if the prescription is for a schedule II opioid drug. Start Date: 10/09/20 Status: Ordered methylPREDNISolone 8 mg oral tablet 8, By Mouth, Daily, 0 Refills, Maintenance, 10/09/20 16:50:00 EST, Partial fill upon patient request if the prescription is for a schedule II opioid drug. Start Date: 10/09/20 Status: Ordered Problem List Diagnosis Diagnosis Type Effective Dates Health Status Cl inical Service Informant Myositis of thigh Discharge Diagnosis 10/09/20 Vital Signs Most recent to oldest [Reference Range]: 1 Height 161 cm (10/09/20 4:34 PM) Weight 70.2 kg (10/09/20 4:34 PM) Pulse Rate [55-90 bpm] 83 bpm (10/09/20 4:34 PM) Body Mass Index [18.5-24.99] 27.08 *H* (10/09/20 4:34 PM) Blood Pressure [90-138/55-84 mm Hg] 154/ 88mm Hg *H* (10/09/20 4:34 PM) Temperature [96.8-100.4 DegF] 98.7 DegF (10/09/20 4:34 PM) Blood pressure sites Arm, right (10/09/20 4:34 PM) Temperature Route Temporal (10/09/20 4:34 PM) Social History Social History Type Response Smoking Status Never (less than 100 in lifetime) entered on: 10/09/20 Sex
--- OUTSIDE RECORDS SUMMARY | 2023-11-22 21:28 | XMS_ITS | Continuity of Care Document ---
Author Name Unknown Organization [facility] Address [address] [place] [address]- Care Team Providers Care Green Pipefitter Name Role Phone Yesica Lucio Primary Care Physician [place] [facility] [place] [facility] [place](s[place] 10/03/22 - 10/10/22 [facility] [address] [place] [address]- Attending Physician: Daniel Beltran MD Admitting Physician: Daniel Beltran MD Referring Physician: Yesica Lucio Allergies, Adverse [...] oldest [Reference Range]: 1 Height 161 cm (10/03/22 4:12 PM) Weight 68 kg (10/03/22 4:12 PM) Oxygen Saturation [94-100 %] 98 % (10/03/22 4:12 PM) Pulse Rate [55-90 bpm] 102 bpm *H* (10/03/22 4:12 PM) Body Mass Index [18.5-24.99 kg/m2] 26.23 kg/m2 *H* (10/03/22 4:12 PM) Blood Pressure [90-138/55-84 mm Hg] 158/ 68mm Hg *H* (10/03/22 4:12 PM) Mode of Delivery (Oxygen) Room air (10/03/22 4:12 PM) Blood pressure sites Arm, right (10/03/22 4:12 PM) Weight Obtained Via Patient/family state d (10/03/22 4:12 PM) Social History Social History Type Response Smoking Status Never (less than 100 in lifetime) entered on: 10/09/20 Sex Female Note * Prerna Schultz: PERFORM, SIGN, VERIFY Event Display: Patient Education/Instruction Authored Date: [id number] [facility] *[facility]S [address] Clinical Summary Name MARGAUX REYNOLDS Age 41 Years 1980 PCP Yesica Lucio PCP Visit Date 10/03/2022 16:03:00 Additional Instructions: Scheduled Appointments?? Future Appointments ?*[facility]??Surg [address] ?[place],??[place],??[address] ?Phone:??--?Fax:??-- ?Appt. Date:??10/19/2022?3:40 PM ?Scheduled Provider:??Byron BUTLER, Tobias Hahn Follow-Up Instructions ?? Diagnosis Medications: Please continue your medications until treatment is completed or stopped by your provider. Discuss any questions related to medications with your provider. New Medications - Durable Medical Equipment (Compression Stockings) surgical, calf length 20-30 mm Hg Dx: Varicose veins with pain. Refills: 2. Next Dose: Medications to Continue with No Changes These medications were not printed or sent to your pharmacy MethylPREDNISolone (methylPREDNISolone 8 mg oral tablet) 8 Milligram Oral Daily. Next Dose: Allergy Info:?? NKA Medications Given This Visit Future Orders ?No future orders Vital Signs Height 161 cm Weight 68 kg BMI 26.23 kg/m2 Blood Pressure 158 mm Hg/68 mm Hg Temperature Pulse Rate 102 bpm Respiratory Rate 02 Sat Mode of Delivery 98 %/Room air You can now view a summary of your hospital visit from the comfort of your home through a free online portal called [employer]. [employer] is a website that allows you to securely view your medical information including discharge summary, medications and follow-up visits. ??You can alsosend a secure electronic message to your doctor???s office to request appointments, renew medications or just ask a question. You can enroll at [email or web address] or register during your next office visit. Disclaimer:?? The information provided is of a general nature and is intended to be used in conjunction with the recommendations and advice of your health care practitioner. ??Every effort has been made to ensure that the information provided is accurate and complete at the time it is provided to you however, as your needs change, or, as new ??information becomes available, different or additional instructions may be required. If you have questions, please consult with your primary care provider or pharmacist, as appropriate. ??This information is not intended to serve as substitution for assessment and evaluation by a qualified health care provider. If you do not have a primary care provider, you may find a [facility] provider by calling [facility] [employer] Link at [phone]. For information about the plan of care including goals and instructions for your diagnosis, please see the patient education orders section of this document. Patient Education Materials?? The content of this educational material or handout may have been modified, supplemented, or adapted from its original content and format to support your individualized medical care. Patient Care team information Care Team Personnel Name: Yesica Lucio Position: [facility] Associate Professional Member Role: PCP Address: Address: [address] [place] [address]- Care Team Related Persons Name: NAVID FORRESTER
--- OUTSIDE RECORDS SUMMARY | 2023-11-22 21:28 | XMS_ITS | Continuity of Care Document ---
Author Name Unknown Organization [facility] Address [address] [place] [address]- Care Team Providers Care Feller Hand Name Role Phone Yesica Lucio Primary Care Physician [place] [facility] [place] 11/15/22 - 12/15/22 [facility] [address] [place] [id number] [place] Allergies, Adverse Reactions, Alerts No Known [...] Associate Professional Member Role: PCP Address: Address: [address] [place] [address] Care Team Related Persons Name: NAVID FORRESTER
--- OUTSIDE RECORDS SUMMARY | 2023-11-22 21:28 | XMS_ITS | Continuity of Care Document ---
Author Name Unknown Organization [facility] Address [address] [place] [address] ve [address] [place] [address]- Care Team Providers Care Animal Nutritionist Name Role Phone Yesica Lucio Primary Care Physician Encounter [facility] [place] Date(s): 04/19/23 - 04/26/[address] [place] [address]- Attending Physician: Tobias Matthews MD Allergies, Adverse Reactions, Alerts No Known Allergies Medications Colace sodium 100 mg oral capsule 100 mg, 1, capsule, By Mouth, 2 times a day, PRN, # 60 capsule, Refills 0, Tot. Refills 0, Maintenance, for constipation, 01/17/23 12:52:00 EDT, Route to Pharmacy Electronically, [facility][id number], Partial fill upon patient request if the [...] 01/17/23 12:52:00 EDT, Route to Pharmacy Electronically, [facility] #[id number], Partial fill upon patient request if the [...] 01/17/23 12:52:00 EDT, Route to Pharmacy Electronically, [facility] #[id number], Partial fill upon patient request if the prescription is for a schedul... Start Date: 01/17/23 Status: Ordered Vital Signs Most recent to oldest [Reference Range]: 1 Height 161 cm (04/19/23 9:24 AM) Weight 66.6 kg (04/19/23 9:24 AM) Pulse Rate [55-90 bpm] 94 bpm *H* (04/19/23 9:24 AM) Body Mass Index [18.5-24.99 kg/m2] 25.69 kg/m2 *H* (04/19/23 9:24 AM) Blood Pressure [90-138/55-84 mm Hg] 151/ 92mm Hg *H* (04/19/23 9:24 AM) Temperature [96.8-100.4 DegF] 97.8 DegF (04/19/23 9:24 AM) Temperature Route Temporal (04/19/23 9:24 AM) Social History Social History Type Response Smoking Status Never (less than 100 in lifetime) entered on: 10/09/20 Sex Female Patient Care team information Care Team Personnel Name: Yesica Lucio Position: S Associate Professional Member Role: PCP Address: Address: [address] [place] [address] Care Team Related Persons Name: SARA MEDRANO
--- OUTSIDE RECORDS SUMMARY | 2023-11-22 21:28 | XMS_ITS | Continuity of Care Document ---
Author Name Unknown Organization [facility] Address [address] [place] [address] [address] [place] [address]- Care Team Providers Care Senior Construction Project Manager Name Role Phone Yesica Lucio Primary Care Physician Encounter [facility] [place] Date(s): 02/15/23 - 02/22/[address] [place] [address]- Attending Physician: Tobias Matthews MD Allergies, Adverse Reactions, Alerts No Known Allergies Medications Colace sodium 100 mg oral capsule 100 mg, 1, capsule, By Mouth, 2 times a day, PRN, # 60 capsule, Refills 0, Tot. Refills 0, Maintenance, for constipation, 01/17/23 12:52:00 EDT, Route to Pharmacy Electronically, [facility]#[id number], Partial fill upon patient request if the [...] 01/17/23 12:52:00 EDT, Route to Pharmacy Electronically, [facility] #[id number], Partial fill upon patient request if the [...] 01/17/23 12:52:00 EDT, Route to Pharmacy Electronically, [facility] #[id number], Partial fill upon patient request if the prescription is for a schedul... Start Date: 01/17/23 Status: Ordered Vital Signs Most recent to oldest [Reference Range]: 1 Height 161 cm (02/15/23 10:44 AM) Weight 67.5 kg (02/15/23 10:44 AM) Pulse Rate [55-90 bpm] 79 bpm (02/15/23 10:44 AM) Body Mass Index [18.5-24.99 kg/m2] 26.04 kg/m2 *H* (02/15/23 10:44 AM) Blood Pressure [90-138/55-84 mm Hg] 147/ 88mm Hg *H* (02/15/23 10:44 AM) Temperature [96.8-100.4 DegF] 97.5 DegF (02/15/23 10:44 AM) Temperature Route Temporal (02/15/23 10:44 AM) Social History Social History Type Response Smoking Status Never (less than 100 in lifetime) entered on: 10/09/20 Sex Female Patient Care team information Care Team Personnel Name: Yesica Lucio Position: S Associate Professional Member Role: PCP Address: Address: [address] [place] [address] Care Team Related Persons Name: SARA MEDRANO
--- OUTSIDE RECORDS SUMMARY | 2023-11-22 21:28 | XMS_ITS | Continuity of Care Document ---
Author Name Unknown Organization [facility] Address [address] [place] [address] ve [address] [place] [address]- Care Team Providers Care Ladle Filler Name Role Phone Yesica Lucio Primary Care Physician [place] [facility] [place] 04/19/23 - 08/04/[address] [place] [address]- Attending Physician: Tobias Matthews MD Allergies, Adverse Reactions, Alerts No Known Allergies Immunizations Given and Recorded Vaccine Date Status Refusal Reason tetanus/diphtheria/pertussis, acel(Tdap) 05/05/23 Given Medications Colace sodium 100 mg oral capsule 100 mg, 1, capsule, By Mouth, 2 times a day, PRN, # 60 capsule, Refills 0, Tot. Refills 0, Maintenance, for constipation, 01/17/23 12:52:00 EDT, Route to Pharmacy Electronically, [facility]#[id number], Partial fill upon patient request if the [...] 01/17/23 12:52:00 EDT, Route to Pharmacy Electronically, [facility] #[id number], Partial fill upon patient request if the [...] 01/17/23 12:52:00 EDT, Route to Pharmacy Electronically, [facility] #[id number], Partial fill upon patient request if the prescription is for a schedul... Start Date: 01/17/23 Status: Ordered Social History Social History Type Response Smoking Status Never (less than 100 in lifetime) entered on: 10/09/20 Sex Female Patient Care team information Care Team Personnel Name: Yesica Lucio Position: S Associate Professional Member Role: PCP Address: Address: [address] [place] [address] Care Team Related Persons Name: ARYA QUINONEZ Name: HANNAH REYNOLDS Name: SARA MEDRANO Address: [facility]
--- OUTSIDE RECORDS SUMMARY | 2023-11-22 21:28 | XMS_ITS | Continuity of Care Document ---
Author Name Unknown Organization [facility] Address [address] [place] [address]- Care Team Providers Care Coagulant Dipper Name Role Phone Deena GARCIA, Candace Primary Care Physician Encounter [facility] [place] Date(s): 11/11/20 - 11/11/[address] [address] Discharge Disposition: A-D/C Home Attending Physician: Krishan Dubose MD Admitting Physician: Krishan Dubose MD Referring Physician: Krishan Dubose MD Allergies, Adverse Reactions, Alerts Substance Reaction Severity [...] opioid drug. Start Date: 10/09/20 Status: Ordered oxyCODONE 5 mg oral tablet 5 mg, 1, tablet, By Mouth, Every 6 hours, PRN, Please do not drive while taking this medication., #7 tablet, Refills 0, Tot. Refills 0, Acute 11/13/20 13:00:00 EST, Pain , Severe, 11/11/20 12:45:00 EST, Route to Pharmacy Electronically, [facility]... Start Date: 11/11/20 Stop Date: 11/13/20 Status: Ordered Vital Signs Most recent to oldest [Reference Range]: 1 2 3 Height 161 cm (11/11/20 10:21 AM) 161 cm (11/09/20 9:26 AM) Weight 69 kg (11/11/20 10:21 AM) 70 kg (11/09/20 9:26 AM) Oxygen Saturation [94-100 %] 100 % (11/11/20 1:45 PM) 99 % (11/11/20 1:30 PM) 100 % (11/11/20 10:21 AM) Pulse Rate [55-90 bpm] 82 bpm (11/11/20 10:21 AM) Body Mass Index [18.5-24.99] 26.62 *H* (11/11/20 10:21 AM) 27.01 *H* (11/09/20 9:26 AM) Blood Pressure [90-138/55-84 mm Hg] 121/65mm Hg (11/11/20 1:45 PM) 123/59mm Hg (11/11/20 1:30 PM) 139/78mm Hg *H* (11/11/20 10:21 AM) Respiratory Rate [16-30 br/min] 18 br/min (11/11/20 1:45 PM) 19 br/min (11/11/20 1:30 PM) 21 br/min (11/11/20 10:21 AM) Temperature [96.8-100.4 DegF] 97.6 DegF (11/11/20 1:30 PM) 97.8 DegF (11/11/20 10:21 AM) Mode of Delivery (Oxygen) Room air (11/11/20 1:45 PM) Room air (11/11/20 1:30 PM) Room air (11/11/20 10:21 AM) Blood pressure sites Arm, right (11/11/20 10:21 AM) Temperature Route Temporal (11/11/20 1:30 PM) Temporal (11/11/20 10:21 AM) Dry Weight 69 kg (11/11/20 10:21 AM) 70 kg (11/09/20 9:26 AM) Weight Obtained Via Standing scale (11/11/20 10:21 AM) Patient/family stated (11/09/20 9:26 AM) Dry Weight Obtained Via Standing scale (11/11/20 10:21 AM) Patient/family stated (11/09/20 9:26 AM) Social History Social History Type Response Smoking Status Never (less than 100 in lifetime) entered on: 10/09/20 Sex Female
--- OUTSIDE RECORDS SUMMARY | 2023-11-22 21:28 | XMS_ITS | Continuity of Care Document ---
Author Name Unknown Organization [address] [place] [address]- Care Team Providers Care Smoking Pipe Mounter Name Role Phone Deena GARCIA, Candace Primary Care Physician [phone] Encounter [facility] [place] Date(s): 11/27/20 - 12/04/[address] [place] [address]- Encounter Diagnosis Myositis(Discharge Diagnosis) - 11/27/20 Attending Physician: Henri Simmons Referring Physician: Candace Shaffer NP Allergies, Adverse Reactions, Alerts Substance Reaction Severity [...] Diagnosis Diagnosis Type Effective Dates Health Status Clini clari Service Informant Myositis Discharge Diagnosis 11/27/20 Vital Signs Most recent to oldest [Reference Range]: 1 Height 161 cm (11/27/20 10:40 AM) Weight 70 kg (11/27/20 10:40 AM) Pulse Rate [55-90 bpm] 77 bpm (11/27/20 10:40 AM) Body Mass Index [18.5-24.99] 27.01 *H* (11/27/20 10:40 AM) Blood Pressure [90-138/55-84 mm Hg] 151/ 93mm Hg *H* (11/27/20 10:40 AM) Respiratory Rate [16-30 br/min] 16 br/mi n (11/27/20 10:40 AM) Temperature [96.8-100.4 DegF] 96.9 DegF (11/27/20 10:40 AM) Blood pressure sites Arm, right (11/27/20 10:40 AM) Temperature Route Temporal (11/27/20 10:40 AM) Weight Obtained Via Standing scale (11/27/20 10:40 AM) Social History Social History Type Response Smoking Status Never (less than 100 in lifetime) entered on: 10/09/20 Sex Female
--- OUTSIDE RECORDS SUMMARY | 2023-11-22 21:28 | XMS_ITS | Continuity of Care Document ---
Author Name Unknown Organization [facility] Address Unknown Care Team Providers Care Coding Analyst Name Role Phone Deena GARCIA, Candace Primary Care Physician [phone] Encounter [facility] [place] Date(s): 05/16/22 - 06/15/22 [facility] Allergies, Adverse Reactions, Alerts No Known Allergies [...]
--- OUTSIDE RECORDS SUMMARY | 2023-11-22 21:28 | XMS_ITS | Continuity of Care Document ---
Author Name Unknown Organization [facility] Address [address] [place] [address]- Care Team Providers Care Staff Software Engineer Name Role Phone Yesica Lucio Primary Care Physician Encounter [facility] [place] Date(s): 12/09/22 - 01/08/23 [facility] [address] [place] [address] us Attending Physician: Jocelynn Mckeon Admitting Physician: Jocelynn Mckeon Referring Physician: AdmtrJocelynn Allergies, Adverse Reactions, Alerts No Known Allergies Medications Compression Stockings See Instructions, # 2 each, Refills 1, Tot. Refills 1, Maintenance, surgical, thigh high length 20-30 mm Hg Dx: Venous Insuff., 12/23/22 9:55:00 EST, Supply Start Date: 12/23/22 Status: Ordered Compression Stockings See Instructions, # [...] Associate Professional Member Role: PCP Address: Address: [address] [place] [address]- Care Team Related Persons Name: NAVID FORRESTER
--- OUTSIDE RECORDS SUMMARY | 2023-11-22 21:28 | XMS_ITS | Continuity of Care Document ---
Author Name Unknown Organization [address] [place] [address]- Care Team Providers Care Director Global Strategic Publisher Sales Name Role Phone Yesica Lucio Primary Care Physician [id number] Date(s[facility] 07/27/22 - 08/28/[address] [place] [address]- [place] Attending Physician: Tobias Matthews MD Referring Physician: [...] information Personnel Name: Yesica Lucio Address: Address: [address] [place] [id number]
--- OUTSIDE RECORDS SUMMARY | 2023-11-22 21:28 | XMS_ITS | Continuity of Care Document ---
Author Name Unknown Organization [facility] Address [address] [place] [address]- Care Team Providers Care Water Filterer Helper Name Role Phone Yesica Lucio Primary Care Physician Encounter [facility] [place] Date(s): 10/07/22 - 02/04/23 [facility] [address] [place] [address]- Attending Physician: Daniel Beltran MD Admitting Physician: Daniel Beltran MD Allergies, Adverse Reactions, Alerts No Known Allergies Medications Colace sodium 100 mg oral capsule 100 mg, 1, capsule, By Mouth, 2 times a day, PRN, # 60 capsule, Refills 0, Tot. Refills 0, Maintenance, for constipation, 01/17/23 12:52:00 EDT, Route to Pharmacy Electronically, [facility]#[id number], Partial fill upon patient request if the [...] 01/17/23 12:52:00 EDT, Route to Pharmacy Electronically, [facility] #[id number], Partial fill upon patient request if the [...] 01/17/23 12:52:00 EDT, Route to Pharmacy Electronically, [facility] #[id number], Partial fill upon patient request if the prescription is for a schedul... Start Date: 01/17/23 Status: Ordered Social History Social History Type Response Smoking Status Never (less than 100 in lifetime) entered on: 10/09/20 Sex Female Patient Care team information Care Team Personnel Name: Yesica Lucio Position: S Associate Professional Member Role: PCP Address: Address: [address] [place] [address]- Care Team Related Persons Name: NAVID FORRESTER
--- OUTSIDE RECORDS SUMMARY | 2023-11-22 21:28 | XMS_ITS | Continuity of Care Document ---
Author Name Unknown Organization [facility] Address [address] [place] [address]- Care Team Providers Care Laborer Tin Can Name Role Phone Yesica Lucio Primary Care Physician [phone] Encounter [facility] [place] Date(s): 12/19/22 - 12/26/22 [facility] [address] [place], [place] [address] Attending Physician: Daniel Beltran MD Admitting Physician: Daniel Beltarn MD Referring Physician: Yesica Lucio Allergies, Adverse [...] entered on: 10/09/20 Sex Female Note * Stacy Maldonado: PERFORM, SIGN, VERIFY Event Display: Patient Education/Instruction Authored Date: [id number] [facility] *[facility]S [address] Clinical Summary Name MARGAUX REYNOLDS Age 42 Years 1980 PCP Yesica Lucio [id number] Visit Date 12/19/2022 06:42:00 Additional Instructions: Scheduled Appointments?? Future Appointments ?[facility] ?[address]??[place],??[place],??[address] ?Phone:??[phone]?Fax:??-- ?Appt. Date:??01/17/2023?2:00 PM ?Scheduled Provider:??[facility] ?*[facility]??Gen??Surg [address] ?[address] ?[place],??[place],??[address] ?Phone:??--?Fax:??-- ?Appt. Date:??02/15/2023?10:30 AM ?Scheduled Provider:??Byron BUTLER, Tobias Hahn Follow-Up Instructions ?? Diagnosis Medications: Please continue your medications until treatment is completed or stopped by your provider. Discuss any questions related to medications with your provider. Medications to Continue with No Changes These medications were not printed or sent to your pharmacy Durable Medical Equipment (Compression Stockings) surgical, calf length 20-30 mm Hg Dx: Varicose veins with pain. Refills: 2. Next Dose: MethylPREDNISolone (methylPREDNISolone 8 mg oral tablet) 8 Milligram Oral Daily. Next Dose: Allergy Info:?? NKA Medications Given This Visit Future Orders ?No future orders Vital Signs Height Weight BMI Blood Pressure / Temperature Pulse Rate Respiratory Rate 02 Sat Mode of Delivery / You can now view a summary of your hospital visit from the comfort of your home through a free online portal called [employer]. [employer] is a website that allows you to securely view your medical information including discharge summary, medications and follow-up visits. ??You can alsosend a secure electronic message to your doctor???s office to request appointments, renew medications or just ask a question. You can enroll at [email or web address] or register during your next office visit. [...] primary care provider, you may find a [facility] provider by calling [facility] [employer] Link at [phone]. For information about the plan of care [...] Professional Member Role: PCP Address: Address: [address] [place] [address]- Care Team Related Persons Name: NAVID FORRESTER
--- OUTSIDE RECORDS SUMMARY | 2023-11-22 21:28 | XMS_ITS | Continuity of Care Document ---
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 Role Phone Yesica Lucio Primary Care Physician [place] [facility] [place] Date(s): 05/05/23 - 05/05/[address] [address]- Encounter Diagnosis Fall(Final) - 05/05/23 Discharge Disposition: A-D/C Home Attending Physician: Jonn Baker MD Admitting Physician: Jonn Baker MD Referring Physician: Not on Staff, Referring MD Allergies, Adverse Reactions, Alerts No Known Allergies Immunizations Given and Recorded Vaccine Date Status Refusal Reason tetanus/diphtheria/pertussis, acel(Tdap) 05/05/23 Given Medications Colace sodium 100 mg oral capsule 100 mg, 1, capsule, By Mouth, 2 times a day, PRN, # 60 capsule, Refills 0, Tot. Refills 0, Maintenance, for constipation, 01/17/23 12:52:00 EDT, Route to Pharmacy Electronically, [facility]#[id number], Partial fill upon patient request if the [...] 01/17/23 12:52:00 EDT, Route to Pharmacy Electronically, [facility] #[id number], Partial fill upon patient request if the [...] 01/17/23 12:52:00 EDT, Route to Pharmacy Electronically, [email or web address][id number], Partial fill upon patient request if the prescription is for a schedul... Start Date: 01/17/23 Status: Ordered Results Radiology Reports * Exam Date Time Procedure Performing Provider Status 05/05/23 4:19 PM Chest 2 Views Frontal and Lat Dai Bustillos; Auth (Verified) Notes: (Chest 2 Views Frontal and Lat) Reason For Exam: Traumatic Chest Pain;Other: RESULT: Chest 2 Views Frontal and Lat Chest 2 Views Frontal and Lat HX OF PRESENT ILLNESS: Unwitnessed fall in driveway, +LOC, hx of weakness in BLE, LAC to back of head, bleeding controlled. Kazakh speaking; Reason: Traumatic Chest Pain; Clinical Question(s): Pneumothorax, Fracture COMPARISON: None. FINDINGS: LINES AND TUBES: None. LUNGS AND PLEURA: Minimal focal atelectasis and/or scarring near the left costophrenic angle laterally. The rest of the lungs are clear. Normal pulmonary vascularity. No pleural effusion. No pneumothorax. HEART, MEDIASTINUM AND ANT: Heart is normal in size. Normal mediastinal and hilar contour. BONES AND SOFT TISSUES: No acute abnormality. IMPRESSION: No definite acute cardiopulmonary disease is seen. I have personally reviewed the images and I agree with this report. WSN: [id number] Ordering Physician: Angelique Irene Dictated By: Gladys Aviles MD Dictated Date/Time: 05/05/23 4:25 pm Reviewed By: Varun Andino MD, V Signed By: Varun Andino MD, V Signed Date/Time: 05/05/23 4:30 pm Transcribed By: BEENA Transcribed Date/Time: 05/05/23 4:23 pm * Exam Date Time Procedure Performing Provider Status 05/05/23 3:[address] Head/Brain W/O Contrast Soraya Dozier; Auth (Verified) Notes: (CT Head/Brain W/O Contrast) Reason For Exam: Trauma RESULT: CT Head/Brain W/O Contrast CT Head/Brain W/O Contrast INDICATION: Hx of Present Illness: Unwitnessed fall in driveway, +LOC, hx of weakness in BLE, LAC to back of head, bleeding controlled. Kazakh speaking; Reason: Trauma; Clinical Question(s): Subarachnoid Hemorrhage; Order Comment: TECHNIQUE: Noncontrast head CT using axial technique and reconstructed in axial and coronal planes.Iterative reconstruction techniques are used to optimize dose and image quality. CTDIvol Head: 48.20 mGy, DLP Head: 772 mGy*cm. COMPARISON: None. FINDINGS: Elevator Adjuster view findings, lines and tubes: None. BRAIN AND EXTRA-AXIAL SPACES: No parenchymal hemorrhage, midline shift, or mass effect. Aviles-white matter differentiation is wellpreserved. No acute infarct. Ventricles, sulci, and basilar cisterns are normal. No white matter lesions. No subarachnoid hemorrhage. No subdural or epidural collection. CALVARIUM, SKULL BASE, AND SOFT TISSUES: No fractures or suspicious bony lesions. Small sphenoid sinus polyp or mucus retention cyst. The paranasal sinuses and mastoid air cells areotherwise clear. Visualized orbits and globes are intact. The extracranial soft tissues are unremarkable. IMPRESSION: No evidence of acute intracranial abnormality. WSN: [id number] Ordering Physician: Angelique Irene Dictated By: Cr Tomas MD Dictated Date/Time: 05/05/23 3:53 pm Reviewed By: Cr Tomas MD Signed By: Cr Tomas MD Signed Date/Time: 05/05/23 3:53 pm Transcribed By: BEENA Transcribed Date/Time: 05/05/23 3:51 pm Vital Signs Most recent to oldest [Reference Range]: 1 2 Oxygen Saturation [94-100 %] 99 % (05/05/23 5:52 PM) 100 % (05/05/23 1:07 PM) Pulse Rate [55-90 bpm] 75 bpm (05/05/23 5:52 PM) 72 bpm (05/05/23 1:07 PM) Blood Pressure [90-138/55-84 mm Hg] 136/ 88mm Hg (05/05/23 5:52 PM) 148/92mm Hg *H* (05/05/23 1:07 PM) Respiratory Rate [16-30 br/min] 18 br/mi n (05/05/23 5:52 PM) 18 br/min (05/05/23 1:07 PM) Temperature [96.8-100.4 DegF] 98.1 DegF (05/05/23 1:07 PM) Mode of Delivery (Oxygen) Room air (05/05/23 5:52 PM) Room air (05/05/23 1:07 PM) Blood pressure sites Arm, left (05/05/23 5:52 PM) Arm, left (05/05/23 1:07 PM) Temperature Route Oral (05/05/23 1:07 PM) Social History Social History Type Response Smoking Status Never (less than 100 in lifetime) entered on: 10/09/20 Sex Female Note * Angelique Irene MD: PERFORM Event Display: Patient Education Leaflets Authored Date: [id number] Scalp Laceration, Stitches or Andrey ?? [id number] Scalp Laceration, Stitches or Andrey A laceration is a cut through the skin. A scalp laceration may require stitches or andrey. It may also be closed with a hair positioning method, such as braiding. There are a lot of blood vessels inthe scalp. Because of this, a lot of bleeding is common with scalp cuts. You may need a tetanus shot if you're not up to date on your tetanus vaccine. Home care These guidelines will help you care for your laceration at home: ??? Follow your healthcare provider's specific directions on washing your hair and scalp. During the first 2 days you may carefully rinse your hair in the shower to remove blood and glass or dirt particles, or as advised by your provider. After 2 days you may shower and shampoo your hair normally. Don't scrub the repaired area or let water run on it for a long time. ??? Have someone help you clean your wound every day: o In the shower, wash the area with soap and water. Use a wet cotton swab to loosen and remove any blood or crust that forms. o After cleaning, keep the wound clean and dry. Talk with your healthcare provider about applying antibiotic ointment to the wound. Apply a fresh bandage. ??? Don't put your head underwater until the stitches or andrey have been removed. This means no swimming. ??? Your provider may prescribe an antibiotic cream or ointment to prevent infection. Don't stop taking this medicine until you've finished the medicine that was prescribed, or your provider tells you to stop. ??? Your prov ider may prescribe medicines for pain. If no pain medicines were prescribed, you can use dawu-jxj-hcwzmon pain medicines. Follow instructions for taking these medicines. Talk with your provider before using these medicines if you have chronic liver or kidney disease. Also talk with your provider ifyou've ever had a stomach ulcer or digestive tract bleeding. ??? To help prevent scarring, put sunscreen on the wound after it has healed. Use a sunscreen with SPF of 30 or higher. Reapply sunscreen often. ?? Follow-up care Follow up with your healthcare provider as advised. Check the wound daily for the signs of infection listed below. Stitches or andrey are often removed from the scalp in about 7 to 10 days. ?? Call 911 Call 911 if this occurs: ??? Bleeding can't be controlled by direct pressure ?? When to get medical advice Call your healthcare provider right away if any of the following occur: ??? Signs of infection, including increasing pain in the wound, redness, swelling, or pus coming from the wound ??? Fever of 100.4??F (38??C) or higher, or as advised by your provider ??? Chills ??? Stitches or andrey come apart or fall out before 7 days ??? Wound edges reopen ?? Last Reviewed Date: 2022 ?? [employer]. All rights reserved. This information is not intended as a substitute for professional medical care. Always follow your healthcare professional's instructions. ?? * Angelique Irene MD: PERFORM Event Display: Patient Education Leaflets Authored Date: [id number] Trauma Mild Head Injury Concussion ?? 317 Trauma Patient ??? Mild Head Injury or Concussion Aftercare Instructions ?? A concussion is the result of a direct blow to the head, causing disruption to normal brain function. Some people may lose consciousness, experience brief confusion, or feel ???dazed?? just after the event. It is not uncommon to not be able to remember what happened. Symptoms may develop after impact, or may start 1-2 days later. Treatment for both is physical rest, and resting the brain. ?? You may experience some of the following common symptoms: ??? Nausea/vomiting ??? Headache ??? Dizziness ??? Weakness ??? Feeling anxious, depressed or irritable ??? Sleepiness ?? Aftercare Instructions: ??? In case of vomiting, attempt to drink clear liquids ??? Do not drink alcohol ??? Take pain medicine as prescribed ?? Notify your doctor or return to the Emergency Department immediately in case of the following: ??? Excessive or persistent vomiting ??? Headaches that last or get worse, even after prescribed pain medication ??? Progressive weakness in face or limbs, stumbling or blurred vision ??? Seizures or???fits? Sudden confusion ?? Additional questions please contact: Trauma Outpatient Office/[facility] [address] [place] [address] ? Patient Care team information Care Team Personnel Name: Yesica Lucio Position: [facility] Associate Professional Member Role: PCP Address: Address: [address] [place] [address]- Name: Kerline Magdaleno DO Position: [facility] Resident Address: Address: [address] [place] [address] Name: Marlena Baker Position: [facility] ED TA [facility] Name: Jonn Baker MD Position: [facility] ED Medicine MD Member Role: Admitting Physician Address: Address: [address] [place] [address]- Name: Junior Garcia LPN Position: [facility] ED RN W/OE and Tasks Member Role: Patient Care Provider Name: Angelique Irene MD Position: [facility] Resident Member Role: ED Resident Address: Address: [address] [place] [address] Care Team Related Persons Name: SARA MEDRANO Address: [facility]
--- OUTSIDE RECORDS SUMMARY | 2023-11-22 21:28 | XMS_ITS | Continuity of Care Document ---
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
--- OUTSIDE RECORDS SUMMARY | 2023-11-22 21:28 | XMS_ITS | Continuity of Care Document ---
Author Name Unknown Organization 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 Name Role Phone Yesica Lucio Primary Care Physician [phone] [id number] Date(s): 07/27/22 - 08/03/[address] [place] [address]- Encounter Diagnosis Hemorrhoids(Discharge Diagnosis) - 07/27/22 Attending Physician: Yvan GARCIA, Jennifer Maldonado Referring Physician: Yesica Lucio Allergies, Adverse Reactions, [...] Dates Health Status Clini clari Service Informant Hemorrhoids Discharge Diagnosis 07/27/22 Vital Signs Most recent to oldest [Reference Range]: 1 Height 161 cm (07/27/22 1:33 PM) Weight 68.6 kg (07/27/22 1:33 PM) Pulse Rate [55-90 bpm] 89 bpm (07/27/22 1:33 PM) Body Mass Index [18.5-24.99 kg/m2] 26.47 kg/m2 *H* (07/27/22 1:33 PM) Blood Pressure [90-138/55-84 mm Hg] 139/ 77mm Hg *H* (07/27/22 1:33 PM) Respiratory Rate [16-30 br/min] 17 br/mi n (07/27/22 1:33 PM) Temperature [96.8-100.4 DegF] 97.4 DegF (07/27/22 1:33 PM) Temperature Route Temporal (07/27/22 1:33 PM) Social History Social History Type Response Smoking Status Never (less than 100 in lifetime) entered on: 10/09/20 Sex Female Patient Care team information Personnel Name: Yesica Lucio Address: Address: [address] [place] [address]
== END 2023-11-22 21:35 | disposition home or self-care (01) ==
LOC: HO.ED 21:26
PROVIDERS: Emergency Provider Emergency Medicine
DX: M25.552 Pain in left hip (principal)
CPT/HCPCS: 73502; 96372; 99284; J1885